=== PATIENT | male | born 1990 | race African-American/Black ===

== ENCOUNTER 2024-07-24 14:41 | Inpatient (IN) | payer MEDICAID, SELFPAY ==
[2024-07-24] VITALS (16 sets, daily range): BP systolic 103–146; BP diastolic 61–101; PULSE 56–88; RESP 14–20; TEMP 36.3–36.7; O2SAT 94–100; BMI 23.1
--- NOTE | 2024-07-24 15:04 | EDNOTE_ITS ---
ED Syncope RME/HPI General Chief Complaint: Syncope / Near Syncope Stated Complaint: SYNCOPAL EPISODE Time Seen by Provider: 07/24/24 15:02 Arrival date/time: 07/24/24 14:41 RME / HPI RME / HPI narrative: This section includes all my notes and documentations, including HPI, PE, and ED course.? Ghanshyam Zuniga MD HPI: 33 year old male presents to the ED BIBA from home for evaluation of possible seizure today. Per medics, reported patient was sitting in chair playing video games and noted to slump over backwards and had seizure-like activity lasting 1 minute. is uncertain when the seizure started. Per medics, on scene patient is noted to be heavily intoxicated. states patient drinks alcohol daily and patients admits to drinking heavily yesterday. No falls or injuries reported. Denies any history of seizures. No other complaints. ROS: All negative except as documented in HPI. Physical Exam: General:? Alert and oriented.? No acute distress when remaining still.?? Eyes:? Conjunctivae and lids clear.? PERRL. EOMI. ENT:? No signs of trauma. Neck:? Supple.? Heart:? RRR.? Lungs:? No respiratory distress.? Good air movement.? No rhonchi, wheezing, rales.?? Abdomen:? Soft and nontender.?? Legs:? No clubbing, cyanosis, edema.? Skin:? Warm and dry.?? Neuro:? Alert and oriented X 3.??Cranial nerves II through XII grossly normal. No peripheral motor deficits. I reviewed all diagnostic test results. My interpretation of the EKG is?Sinus rhythm (62 bpm) with nonspecific ST-T changes. My review of the chest/abdomen/pelvis CT report is?No hemopericardium, pneumothorax, pulmonary contusion or hemothorax. My review of the head CT report is Negative for acute hemorrhage, mass effect or midline shift. Blood tests and urine tests?remarkable for alcohol 199.2 and UDS positive for cocaine and marijuana. At this point, diagnoses include?alcohol withdrawal seizures. Treatment here included?IV fluid and Ativan and thiamine. Patient remained stable. I discussed the case with our neurologist and hospitalist.? About the presentation and exam and diagnostics and treatments here.? And need of further care in the hospital.? Will accept the patient. Ghanshyam Zuniga MD Related Data Allergies Allergy/AdvReac Type Severity Reaction Status Date / Time No Known Allergies Allergy Verified 07/24/24 15:00 Review of Systems Review of Systems Systems Reviewed: All systems reviewed, normal except as documented Past Medical History Past Medical History CARDIAC: Positive Cardiac Arrhythmia (SVT); Negative Congestive Heart Failure RESPIRATORY: Positive Asthma; Negative Chronic Obstructive Pulmonary Disease (COPD) GENITOURINARY: Negative Renal Disease ENDOCRINE: Negative Diabetes Mellitus Type 1 or Diabetes Mellitus Type 2 Social History SMOKING STATUS: Current every day smoker ED Exam Narrative Physical exam: As noted in HPI Course Quality Measures none Orders Category Date Time Status COVID-19 Screening Questionnaire NOW Care 07/24/24 17:37 Active Decision to Admit X1 Care 07/24/24 17:37 Completed EKG (ED ONLY) *Do not use* NOW Care 07/24/24 15:09 Completed Saline [Insert IV] NOW Care 07/24/24 15:08 Active Consult to Neurology / Tele-Neurology Stat Cons 07/24/24 17:[address] chest abdomen pelvis wo Stat Exams 07/24/24 15:[address] head/brain wo con Stat Exams 07/24/24 15:09 Completed EKG (ED Only) Stat Exams 07/24/24 15:09 Ordered Alcohol, Blood Medical Stat Lab 07/24/24 15:28 Completed Amylase Stat Lab 07/24/24 15:28 Completed BMP [Basic Metabolic Panel] Stat Lab 07/24/24 15:28 Completed CBC Stat Lab 07/24/24 15:28 Completed Drug Screen,Urine Stat Lab 07/24/24 14:29 Completed Lipase Stat Lab 07/24/24 15:28 Completed Liver Panel Stat Lab 07/24/24 15:28 Completed Magnesium Stat Lab 07/24/24 15:28 Completed Troponin I Stat Lab 07/24/24 15:28 Completed LORazepam [Ativan Inj] Med 07/24/24 15:08 Discontinued 2 mg IVP X1 ONE Ondansetron Inj [Zofran Inj] Med 07/24/24 15:08 Discontinued 4 mg IV X1 ONE Thiamine Inj [Vitamin B-1 Inj] 100 mg Med 07/24/24 15:08 Discontinued Sodium Chloride 0.9% [Ns] 100 ml IV X1 Vital Signs Vital signs: Vital Signs Temperature 98.1 F 07/24/24 14:55 Pulse Rate 82 07/24/24 14:55 Respiratory Rate 17 07/24/24 14:55 Blood Pressure 128/79 07/24/24 14:55 Pulse Oximetry (%) 99 07/24/24 14:55 Oxygen Delivery Method Room Air 07/24/24 14:55 Pulse ox is 99% on room air which is adequate. Syncope MDM Narrative MDM Narrative:: Lillie Ann am scribing for and in the presence of Dr. uZniga. Patient data External records reviewed:: [facility] previous records (I reviewed ED visit on 05/30/2022) and EMS form Clinical information provided by:: patient and EMS Social determinants that could affect healthcare access:: alcohol use Patient has the following chronic illnesses:: Alcohol abuse How is presenting disease/condition affected by chronic disease/condition?: exacerbated by Evaluation data The following diagnostics were reviewed and interpreted by me:: lab results, radiology exam(s) and EKG tracing(s) (My interpretation of the EKG is: Sinus rhythm (62 bpm) with nonspecific ST-T changes. Ghanshyam Zuniga MD) Lab and/or radiology exams considered but not ordered:: None Interpretation Summary: Diagnostics normal except elevated alcohol and UDS positive for cocaine and marijuana Medications / Prescriptions Medications or Prescriptions considered but not ordered:: None Medication administrations:: Medication Administration History Acetaminophen (Acetaminophen 325 Mg Tablet) 650 mg PO Q6H PRN PRN Reason: Fever >100.5 Stop: 08/23/24 18:03 Acetaminophen (Acetaminophen 325 Mg Tablet) 650 mg PO Q6H PRN PRN Reason: PAIN SCALE 1-3 (mild Stop: 08/23/24 18:03 Docusate Sodium (Docusate Sod 100 Mg Capsule) 100 mg PO QDAY [facility]; Protocol Stop: 08/24/24 08:59 Folic Acid (Folic Acid 1 Mg Tablet) 1 mg PO BID [facility] Stop: 07/29/24 20:59 Last Admin: 07/24/24 23:28 Dose: 1 mg Documented By: SCOT Heparin Sodium (Porcine) (Heparin Sod Inj 5000 Unit/Ml Vial) 5,000 unit SC Q8HR [facility] Stop: 08/07/24 21:59 Last Admin: 07/25/24 05:20 Dose: 5,000 unit Documented By: MYRNA Co-signed By: Admin: 07/24/24 23:28 Dose: 5,000 unit Documented By: SCOT Co-signed By: Lorazepam (Lorazepam 0.5 Mg Tablet) 0.5 mg PO Q4HR PRN PRN Reason: CIWA Score 2-6 Stop: 07/29/24 18:03 Lorazepam (Lorazepam 2 Mg/Ml Vial) 1 mg IV Q2HR PRN PRN Reason: CIWA SCORE 14-19 Stop: 07/29/24 18:03 Lorazepam (Lorazepam 0.5 Mg Tablet) 1 mg PO Q4HR PRN PRN Reason: CIWA SCORE 7-11 Stop: 07/29/24 18:03 Lorazepam (Lorazepam 0.5 Mg Tablet) 2 mg PO Q4HR PRN PRN Reason: CIWA SCORE 12-15 Stop: 07/29/24 18:03 Lorazepam (Lorazepam 2 Mg/Ml Vial) 0.5 mg IV Q2HR PRN PRN Reason: CIWA SCORE 8-13 Stop: 07/29/24 18:03 Lorazepam (Lorazepam 2 Mg/Ml Vial) 2 mg IV Q2HR PRN PRN Reason: CIWA SCORE 20-25 Stop: 07/29/24 18:03 Lorazepam (Lorazepam 2 Mg/Ml Vial) 2 mg IVP X1 PRN PRN Reason: breakthrough seizures Stop: 07/29/24 18:28 Ondansetron HCl (Ondansetron Inj 2 Mg/Ml Inj 2 Ml) 4 mg IV Q6H PRN; Protocol PRN Reason: NAUSEA OR VOMITING Stop: 08/23/24 18:03 Thiamine HCl (Thiamine 100 Mg Tablet) 100 mg PO BID [facility] Stop: 07/29/24 20:59 Last Admin: 07/24/24 23:28 Dose: 100 mg Documented By: SCOT Discontinued Medications Thiamine HCl 100 mg/ Sodium (Chloride) 101 mls @ 202 mls/hr IV X1 ONE Stop: 07/24/24 15:37 Last Infusion: 07/24/24 17:30 Dose: Infused Documented By: Admin: 07/24/24 16:40 Dose: 202 mls/hr Documented By: LILLY Lorazepam (Lorazepam 2 Mg/Ml Vial) 2 mg IVP X1 ONE Stop: 07/24/24 15:09 Last Admin: 07/24/24 16:39 Dose: 2 mg Documented By: LILLY Ondansetron HCl (Ondansetron Inj 2 Mg/Ml Inj 2 Ml) 4 mg IV X1 ONE; Protocol Stop: 07/24/24 15:09 Last Admin: 07/24/24 16:39 Dose: 4 mg Documented By: LILLY Patient given Ativan, Zofran, thiamine Consultations Consultation(s) initiated? (list below): Yes Consultation #1 (Physician, Specialty, Details): I spoke with neurologist Dr. oCnner, she agree to consult. Consultation #2 (Physician, Specialty, Details): I spoke with our hospitalist regarding admission. Diagnosis Syncope Differential Diagnosis: syncope due to orthostatic hypotension, vasovagal syncope, complete atrioventricular block, subarachnoid hemorrhage, pulmonary embolism, dehydration and other (Seizure) Most likely diagnosis given after review of the tests above:: Alcohol withdrawal seizures Admission Indicated Admission indicated?: indicated Admission Request Was there a request for admission?: Yes Admission Attestation Admission request attestation: Discussed case with Hospitalist service regarding admission. Discussed patients ED course, exam findings, labs, and radiology results. The Hospitalist [agrees,declines] to accept the patient for admission. Disposition Plan Disposition Plan: Admit Discharge Plan Plan Patient Disposition: Admit Acute Care w/in Hospital Problem List Clinical Impression: Seizure, Alcohol use disorder
--- NOTE | 2024-07-24 15:09 | XR_ITS ---
Examination: CT brain head without contrast. 2-D sagittal coronal reconstructions Date and time of exam:July 24, 2024 1617 hours INDICATIONS: Seizures today CTDI: vol (mGy):53.1 DLP: (mGycm):1128 Technique: Multiple CT axial sections of the brain have been obtained, 5 mm slice thickness. Contrast has not been administered. 2-D sagittal, coronal reconstructions have been obtained Low dose protocols were performed. One or more of the following dose reduction techniques were used; automated exposure control, adjustment of the mA and/or KV according to patient size, use of iterative reconstruction technique. Findings: No significant ventricular enlargement. Intra-axial or extra-axial hemorrhage density is not seen. No mass effect or midline shift Basal cisterns are not remarkable. Fourth ventricle is midline. Cranial vault intact. Impression: Negative for acute hemorrhage, mass effect or midline shift Consider elective brain MRI follow-up, pre and postcontrast, seizure protocol
--- NOTE | 2024-07-24 15:09 | XR_ITS ---
Examination: CT chest, without intravenous contrast. CT abdomen, without intravenous contrast. CT pelvis, without intravenous contrast. 2-D sagittal and coronal reconstructions. 3-D reconstructions. Date and time of exam:July 24, 2024 1619 hours INDICATIONS: Patient fell today with injury to the chest and abdomen, chest pain abdomen pain CTDI vol (mgy) 6.90 DLP (MGycm)536 Technique: Multiple CT images, 3.0 mm slice thickness, obtained chest, abdomen, pelvis, with the high-resolution 64 slice scanner.. Sagittal and coronal 2-D reconstructions are obtained. 3-D reconstructions Low dose protocols were performed. One or more of the following dose reduction techniques were used; automated exposure control, adjustment of the mA and/or KV according to patient size, use of iterative reconstruction technique. Findings: Thoracic aorta pulmonary arteries intact on this noncontrast study No hemopericardium No pneumothorax pulmonary contusion or hemothorax The manubrium, the body the sternum, thoracic vertebral bodies appear intact Ribs appear intact No liver splenic or renal laceration, no perinephric hematoma No gallstones Normal pancreas Abdominal aorta intact, no free blood in the abdomen Negative for pneumoperitoneum Urinary bladder intact No prostatomegaly Lumbar vertebral bodies appear intact Sacral segments and iliac bones including anterior rami and hips appear intact IMPRESSION: Thoracic aorta pulmonary arteries intact No hemopericardium, pneumothorax, pulmonary contusion or hemothorax No abdominal parenchymal laceration Abdominal aorta intact No free blood in the abdomen Osseous structures appear intact
[2024-07-24 16:04] LABS: Basophils % (Auto) 0 % (0-2.5); Eosinophils # (Auto) 0.3 Thou/mm3 (0.0-0.5); Eosinophils % (Auto) 5 % (0-10); Hemoglobin 13.1 g/dL (13.5-16.0); Immature Granulocytes % (Auto) 0 % (0-0); Lymphocytes # (Auto) 2.3 Thou/mm3 (1.0-4.8); Lymphocytes % (Auto) 39 % (10-50); Mean Corpuscular HGB Conc 33.6 g/dl (31.0-37.0); Mean Corpuscular Hemoglobin 27.9 pg (25.0-35.0); Mean Corpuscular Volume 83 fL (80-100); Monocytes # (Auto) 0.5 Thou/mm3 (0.0-0.8); Monocytes % (Auto) 9 % (0-12); Neutrophils # (Auto) 2.7 Thou/mm3 (1.8-7.7); Neutrophils % (Auto) 47 % (37-80); Nucleated Red Blood Cell % 0 /100 WBC (0); Platelet Count 275 Thou/mm3 (140-440); RDW Standard Deviation 44.2 fL (35.1-43.9); White Blood Count 5.8 Thou/mm3 (3.8-10.6)
[2024-07-24] MEDS: LORazepam 2 MG/ML VIAL IVP (16:39)
[2024-07-24] MEDS: ONDANSETRON INJ 2 MG/ML INJ 2 ML 4 MG IV (16:39)
[2024-07-24] MEDS: THIAMINE INJ 100 MG in SODIUM CHLORIDE 0.9% 100 ML 202 MG IV (16:40)
[2024-07-24 17:17] LABS: Alanine Aminotransferase 14 U/L (10-49); Albumin, Serum 4.7 gm/dL (3.5-5.0); Alcohol, Blood Medical 199.2 mg/dL (0-10.0); Alkaline Phosphatase 87 U/L (46-116); Amylase 154 U/L (30-118); Aspartate Amino Transferase 22 U/L (0-34); BUN/Creatinine Ratio 15 Ratio (12-20); Bilirubin,Direct 0.1 mg/dL (0.0-0.3); Bilirubin,Total 0.4 mg/dL (0.3-1.2); Blood Urea Nitrogen 15 mg/dL (9-23); Calcium 9.5 mg/dL (8.3-10.6); Carbon Dioxide 25.3 mMol/L (20.0-31.0); Estimated Creatinine Clearance 120.2 mL/min (>60); Glucose 82 mg/dL (74-106); Lipase 121 U/L (12-53); Magnesium 2.1 mg/dL (1.6-2.6); Total Protein 8.2 gm/dL (5.7-8.2); Troponin I < 0.002 ng/mL (0.0-0.045); eGFR > 60 See Note
[2024-07-24 17:21] LABS: Anion Gap 11 (7-16); Chloride 109 mMol/L (98-107); Osmolality,Calculated 288 (275-295); Potassium 3.7 mMol/L (3.4-5.1); Sodium 145 mMol/L (136-145)
[2024-07-24 17:57] LABS: Amphetamine/Methamp Scrn,U Negative (Negative); Barbiturate Screen,Urine Negative (Negative); Benzodiazepines Screen,Urine Negative (Negative); Benzoylecgonine Screen, Ur Positive (Negative); Fentanyl Screen,Urine Negative (Negative); Opiate Screen,Urine Negative (Negative); THC Screen,Urine Positive (Negative)
--- NOTE | 2024-07-24 18:08 | ESHP_ITS ---
Documentation for date of: 07/24/24 HPI History of Present Illness Chief complaint: new onset seizure History of present illness: 33-year-old male with no past medical history presented to the ED due to new onset seizures. Patient's girlfriend states the patient sitting in a chair with his eyes rolled back and all tensed up and put the patient on the floor on his side. Patient and girlfriend state yesterday they were heavily drinking and doing cocaine and smoking marijuana. Stated that they drink every other day at least drinks 2 shots over a few beers. Patient also has remote history of SVTs were supposed to follow-up with chemical engineering technologist but never did. Denies tongue biting, urinary incontinence, fevers, chills, shortness of breath, chest pain, nausea vomiting, abdominal pain. Admitted for new onset seizures. ED course: In the ED vital signs stable. Labs significant for amylase 154, lipase 121, U tox positive for cocaine, marijuana, alcohol. EKG shows sinus rhythm. Chest abdomen pelvis CT showed Thoracic aorta pulmonary arteries intact, No hemopericardium, pneumothorax, pulmonary contusion or hemothorax, No abdominal parenchymal laceration, Abdominal aorta intact, No free blood in the abdomen, Osseous structures appear intact. Head CT showed Negative for acute hemorrhage, mass effect or midline shift PMHx: None SX Hx: None Social Hx: Cocaine, marijuana, 2 shots or a few beers every other day FHX: Unknown Review of Systems Review of Systems Narrative Review of Systems: Narrative ROS GENERAL: Denies fevers/chills or diaphoresis. HEENT: Denies headache or visual/hearing changes. Denies nasal discharge. NEURO: Denies unusual weakness or difficulty speaking. CARDIO: Denies chest pain or palpitations. PULM: Denies SOB, coughing, or wheezing. GI: Denies abdominal pain, N/V/C/D/reflux/gas, bright red blood per rectum or melena. Reports having BMs. URO: Denies burning/itching/pain/urinary changes. MSK/EXT/SKIN: Denies joint/skeletal/muscle pain, issues/changes in upper or lower extremities, itchiness, or superficial pain. PSYCH: Cooperative, pleasant mood & affect. The rest of the review of systems is otherwise negative. Exam Vital Signs Temp Pulse Resp BP Pulse Ox O2 Del Method 98.1 F 62 19 110/79 97 Room Air 01/30/25 14:55 07/24/24 16:31 07/24/24 16:31 07/24/24 16:31 07/24/24 16:31 07/24/24 16:31 Narrative Exam Physical Exam GENERAL: NAD, AAOx3 HEENT: Moist mucosa. Eyes open, symmetrical, & clear CARDIO: Heart RRR, no obvious murmurs PULM: No noted coughing/dyspnea CTA B/L, no R/W/R GI: Abdomen soft, nondistended, no pain on palpation. BSx4 SKIN/MSK/EXT: No wounds/rashes/edema/amputations, no pain on palpation. Pedal pulses present B/L NEURO: AAOx3, no focal neuro deficits, able to move all 4 extremities Results: Labs 07/25/24 04:43 07/25/24 04:43 Labs: Short CBC 07/24/24 Range/Units 15:28 WBC 5.8 (3.8-10.6) Thou/mm3 Hgb 13.1 L (13.5-16.0) g/dL Hct 39.0 L (41.0-53.0) % Plt Count 275 (140-440) Thou/mm3 BMP 07/24/24 15:28 Sodium 145 Potassium 3.7 Chloride 109 H Carbon Dioxide 25.3 BUN 15 Creatinine 1.0 Glucose 82 Calcium 9.5 Cardiac Enzymes 07/24/24 Range/Units 15:28 Troponin I < 0.002 (0.0-0.045) ng/mL Liver Function 07/24/24 Range/Units 15:28 Total Bilirubin 0.4 (0.3-1.2) mg/dL Direct Bilirubin 0.1 (0.0-0.3) mg/dL AST 22 (0-34) U/L ALT 14 (10-49) U/L Alkaline Phosphatase 87 (46-116) U/L Albumin 4.7 (3.5-5.0) gm/dL Quality Measures Quality Measures none Medications Home Medications and Allergies Allergies Allergy/AdvReac Type Severity Reaction Status Date / Time No Known Allergies Allergy Verified 07/24/24 15:00 Visit Medications Acetaminophen (Acetaminophen 325 Mg Tablet) 650 mg PO Q6H PRN PRN Reason: Fever >100.5 Stop: 08/23/24 18:03 Acetaminophen (Acetaminophen 325 Mg Tablet) 650 mg PO Q6H PRN PRN Reason: PAIN SCALE 1-3 (mild Stop: 08/23/24 18:03 Docusate Sodium (Docusate Sod 100 Mg Capsule) 100 mg PO QDAY [facility]; Protocol Stop: 08/24/24 08:59 Folic Acid (Folic Acid 1 Mg Tablet) 1 mg PO BID [facility] Stop: 07/29/24 20:59 Heparin Sodium (Porcine) (Heparin Sod Inj 5000 Unit/Ml Vial) 5,000 unit SC Q8HR [facility] Stop: 08/07/24 21:59 Lorazepam (Lorazepam 0.5 Mg Tablet) 0.5 mg PO Q4HR PRN PRN Reason: CIWA Score 2-6 Stop: 07/29/24 18:03 Lorazepam (Lorazepam 2 Mg/Ml Vial) 1 mg IV Q2HR PRN PRN Reason: CIWA SCORE 14-19 Stop: 07/29/24 18:03 Lorazepam (Lorazepam 0.5 Mg Tablet) 1 mg PO Q4HR PRN PRN Reason: CIWA SCORE 7-11 Stop: 07/29/24 18:03 Lorazepam (Lorazepam 0.5 Mg Tablet) 2 mg PO Q4HR PRN PRN Reason: CIWA SCORE 12-15 Stop: 07/29/24 18:03 Lorazepam (Lorazepam 2 Mg/Ml Vial) 0.5 mg IV Q2HR PRN PRN Reason: CIWA SCORE 8-13 Stop: 07/29/24 18:03 Lorazepam (Lorazepam 2 Mg/Ml Vial) 2 mg IV Q2HR PRN PRN Reason: CIWA SCORE 20-25 Stop: 07/29/24 18:03 Ondansetron HCl (Ondansetron Inj 2 Mg/Ml Inj 2 Ml) 4 mg IV Q6H PRN; Protocol PRN Reason: NAUSEA OR VOMITING Stop: 08/23/24 18:03 Thiamine HCl (Thiamine 100 Mg Tablet) 100 mg PO BID [facility] Stop: 07/29/24 20:59 Discontinued Medications Thiamine HCl 100 mg/ Sodium (Chloride) 101 mls @ 202 mls/hr IV X1 ONE Stop: 07/24/24 15:37 Last Infusion: 07/24/24 17:30 Dose: Infused Lorazepam (Lorazepam 2 Mg/Ml Vial) 2 mg IVP X1 ONE Stop: 07/24/24 15:09 Last Admin: 07/24/24 16:39 Dose: 2 mg Ondansetron HCl (Ondansetron Inj 2 Mg/Ml Inj 2 Ml) 4 mg IV X1 ONE; Protocol Stop: 07/24/24 15:09 Last Admin: 07/24/24 16:39 Dose: 4 mg Assessment & Plan Plan 33-year-old male with no past medical history presented to the ED due to new onset seizures. Patient's girlfriend states the patient sitting in a chair with his eyes rolled back and all tensed up and put the patient on the floor on his side. Patient and girlfriend state yesterday they were heavily drinking and doing cocaine and smoking marijuana. Stated that they drink every other day at least drinks 2 shots over a few beers. Patient also has remote history of SVTs were supposed to follow-up with chemical engineering technologist but never did. Denies tongue biting, urinary incontinence, fevers, chills, shortness of breath, chest pain, nausea vomiting, abdominal pain. Admitted for new onset seizures. #New onset seizures Likely secondary to polysubstance abuse Patient was found with eyes rolled back and tensed up in the chair ?Lorazepam for breakthrough seizures ? EEG ordered ? Neurology consulted, appreciate recommendations #Alcohol use disorder #Cocaine use disorder #THC use disorder Patient is an active drinker drinks almost every day has a few shots and a few beers Patient also does cocaine THC recreational Last night patient and partner were heavily drinking and doing cocaine and marijuana. This morning patient drank 2 shots and was playing videogames and was found with eyes rolled back and tensed up in the chair ? Monitor for withdrawal ? IV thiamine and folate ? CIWA protocol in place ? Consider licensed social worker referral Case discussed with my senior Dr. Zimmerman PGY-[address] Eugene Pickett MD PGY-1 Disposition: Telemetry Fluids: None Feeding: Regular Thrombo prophylaxis: None Gastric Ulcer prophylaxis: None CODE STATUS: Full code Senior resident attestation: Patient evaluated and examined at the bedside, plan of care discussed with rest of the team including my attending physician, except as noted. Elsie PGY2 Attending Provider Attestation/Addendum Melanie Ann DO, attest that I was physically present for the beckett portions of the service and evaluated the patient with the resident and I reviewed and discussed the case with the resident and agree with the resident's findings and plans of care as documented above Patient is a 33 year old male with Pmhx of chonic alcohol use who was brought to ED after he had a witnessed seizure. Patient and his significant other had gone to a green party at night during which he was binge drinking, smoking marijuana and using cocaine. Patient woke up this morning and has been somnolent. Per S.O., patient was seen to be rigid and nonreponsive for about 60 seconds. She placed him on the floor and states he had no head trauma. Patient denies previous history of seizures. CT head was done in the ED and showed no acute intracranial findings. CT chest/abdomen/pelvis was also unremarkable despite elevated lipase and amylase, which is more likely due to N/V as patient has been hungover throughout the day. Neurology was called for new onset seizure. Patient is otherwise neurologically intact. Will admit to tele for further workup and medical management on new onset seizure. Will hold off on antiepileptics at this time. Will order EEG. Will monitor for withdrawal under CIWA protocol. Counselled patient on cessation of polysubstance use.
--- NOTE | 2024-07-24 21:27 | PC.NURSE ---
Pt is resting quietly. Sleepy but arouses easily. Family at bedside.
[2024-07-24] MEDS: FOLIC ACID 1 MG TABLET PO (23:28)
[2024-07-24] MEDS: THIAMINE 100 MG TABLET PO (23:28)
[2024-07-24] MEDS: HEPARIN SOD INJ 5000 UNIT/ML VIAL SC (23:28)
--- NOTE | 2024-07-24 23:45 | PD.VCONSULT1 ---
Telemedicine visit statement This visit was conducted with the use of interactive audio and video telecommunications system that permits real time communication between the patient and the provider. Patient's verbal consent for virtual visit was obtained on 07/24/24 at 2345. Meds Home Medications and Allergies Allergies Allergy/AdvReac Type Severity Reaction Status Date / Time No Known Allergies Allergy Verified 07/24/24 15:00 Virtual exam Vital Signs Temp Pulse Resp BP Pulse Ox O2 Del Method 97.7 F 76 20 108/66 95 Room Air 07/24/24 18:47 07/24/24 21:00 07/24/24 21:00 07/24/24 21:00 07/24/24 21:00 07/24/24 18:47 Results Labs 07/24/24 15:28 07/24/24 15:28 Labs: Short CBC 07/24/24 Range/Units 15:28 WBC 5.8 (3.8-10.6) Thou/mm3 Hgb 13.1 L (13.5-16.0) g/dL Hct 39.0 L (41.0-53.0) % Plt Count 275 (140-440) Thou/mm3 BMP 07/24/24 15:28 Sodium 145 Potassium 3.7 Chloride 109 H Carbon Dioxide 25.3 BUN 15 Creatinine 1.0 Glucose 82 Calcium 9.5 Cardiac Enzymes 07/24/24 Range/Units 15:28 Troponin I < 0.002 (0.0-0.045) ng/mL Liver Function 07/24/24 Range/Units 15:28 Total Bilirubin 0.4 (0.3-1.2) mg/dL Direct Bilirubin 0.1 (0.0-0.3) mg/dL AST 22 (0-34) U/L ALT 14 (10-49) U/L Alkaline Phosphatase 87 (46-116) U/L Albumin 4.7 (3.5-5.0) gm/dL
--- NOTE | 2024-07-24 23:53 | PC.NURSE ---
Report was called and pt taken to [facility].PA&O NAD.
[2024-07-25 04:00] VITALS: BP 117/77; PULSE 62; RESP 16; TEMP 36.4; O2SAT 99
[2024-07-25] MEDS: HEPARIN SOD INJ 5000 UNIT/ML VIAL SC ×2 (05:20→13:29)
[2024-07-25 05:29] LABS: Basophils % (Auto) 0 % (0-2.5); Eosinophils # (Auto) 0.7 Thou/mm3 (0.0-0.5); Eosinophils % (Auto) 10 % (0-10); Hematocrit 37.4 % (41.0-53.0); Hemoglobin 12.7 g/dL (13.5-16.0); Immature Granulocytes % (Auto) 0 % (0-0); Immature Granulocytes Auto 0.01 Thou/mm3 (0.00-0.00); Lymphocytes # (Auto) 2.7 Thou/mm3 (1.0-4.8); Lymphocytes % (Auto) 38 % (10-50); Mean Corpuscular Volume 83 fL (80-100); Monocytes # (Auto) 0.7 Thou/mm3 (0.0-0.8); Monocytes % (Auto) 10 % (0-12); Neutrophils # (Auto) 2.9 Thou/mm3 (1.8-7.7); Neutrophils % (Auto) 42 % (37-80); Nucleated Red Blood Cell % 0 /100 WBC (0); Platelet Count 265 Thou/mm3 (140-440); Red Blood Count 4.53 Miln/mm3 (4.50-5.90)
[2024-07-25 05:55] VITALS: BMI 22.6
[2024-07-25 05:56] LABS: Alanine Aminotransferase 13 U/L (10-49); Albumin, Serum 4.4 gm/dL (3.5-5.0); Albumin/Globulin Ratio 1.4 (1.2-2.2); Alkaline Phosphatase 85 U/L (46-116); Anion Gap 7 (7-16); Aspartate Amino Transferase 20 U/L (0-34); BUN/Creatinine Ratio 19 Ratio (12-20); Bilirubin,Total 0.6 mg/dL (0.3-1.2); Blood Urea Nitrogen 19 mg/dL (9-23); Carbon Dioxide 27.9 mMol/L (20.0-31.0); Chloride 105 mMol/L (98-107); Estimated Creatinine Clearance 120.2 mL/min (>60); Globulin 3.2 gm/dL (2.3-3.5); Glucose 98 mg/dL (74-106); Magnesium 1.8 mg/dL (1.6-2.6); Osmolality,Calculated 281 (275-295); Phosphorous 4.2 mg/dL (2.4-5.1); Potassium 3.7 mMol/L (3.4-5.1); Sodium 140 mMol/L (136-145); Total Protein 7.6 gm/dL (5.7-8.2); eGFR > 60 See Note
[2024-07-25 08:00] VITALS: BP 127/73; PULSE 54; PULSE 58; RESP 18; TEMP 36.7; O2SAT 98
[2024-07-25] MEDS: FOLIC ACID 1 MG TABLET PO (09:57)
[2024-07-25] MEDS: THIAMINE 100 MG TABLET PO (09:57)
[2024-07-25] MEDS: DOCUSATE SOD 100 MG CAPSULE PO (09:57)
[2024-07-25 11:37] VITALS: BP 121/80; PULSE 56; RESP 18; TEMP 36.3; O2SAT 99
[2024-07-25 12:00] VITALS: PULSE 55
--- NOTE | 2024-07-25 12:05 | PC.SS ---
Follow up note: Pt is on CWAL protocol. EEG pending.
--- NOTE | 2024-07-25 12:14 | RESP.EEG ---
EEG COMPLETED AND READY TO READ. I SENT A TEXT TO DR. Bedoya
--- NOTE | 2024-07-25 14:31 | ESDS_ITS ---
<Statement entered by Melanie Knight DO - 07/25/24 16:34> I, Melanie Knight DO, attest that I was physically present for the beckett portions of the service and evaluated the patient with the resident and I reviewed and discussed the case with the resident and agree with the resident's findings and plans of care as documented above Planned Discharge Date 07/25/24 DS: Providers Provider Date of admission: 07/24/24 18:04 Primary care physician: Physician No Primary/Family Admitting Provider: Melanie Knight DO Attending Provider on Admission: Melanie Knight DO Consults: 07/24/24 17:34 Consult to Neurology / Tele-Neurology Stat Comment: Seizure Consulting Provider: Alfredo Conner Attending Provider on DC: Jourdan Pickett MD Discharging Provider: Jourdan Pickett MD DS: Diagnosis Problem List Completed Was Problem List Reviewed/Reconciled?: Yes Hospital Course Hospital Course Hospital course: 33-year-old male with no past medical history presented to the ED due to new onset seizures. Patient's girlfriend states the patient sitting in a chair with his eyes rolled back and all tensed up and put the patient on the floor on his side. Patient and girlfriend state yesterday they were heavily drinking and doing cocaine and smoking marijuana. Stated that they drink every other day at least drinks 2 shots over a few beers. Patient also has remote history of SVTs were supposed to follow-up with systems lead but never did. Patient was admitted for new onset seizures. During hospital stay patient was evaluated with EEG which was negative read by neurology. Neurology Dr Conner was consulted and provided recommendations. Patient's neurostatus monitored for any new onset seizures. For patient's alcohol use disorder, cocaine use disorder, THC use disorder patient was monitored with [facility] protocol, IV thiamine and folate was provided. Was monitored for withdrawal symptoms. Patient was extensively counseled on the cessation of these multiple substances, risks of the continued use of these substances more informed to the patient. At this time patient is medically stable for discharge. Recommended to follow-up with primary care physician within 1 week of discharge. Patient counseled extensively on the cessation of illicit substances including cocaine and THC. Patient counseled extensively on cessation of daily alcohol use. Must not operate motor vehicles for at least 3 months or until neurology clearance. Follow-up with neurology within 2 weeks of discharge. Should symptoms recur or worsen patient is instructed to return to the ED. Problem list: #New onset seizures #Alcohol use disorder #Cocaine use disorder #THC use disorder Case discussed with my attending Dr. Eugene Pickett MD PGY-1 Status at Discharge Functional status at discharge: independent ambulation Overall status at discharge: patient is back to baseline Time Spent with Patient Time attestation: Total time spent providing and/or coordinating discharge services: Time spent: Greater than 30 minutes Exam Vital Signs Temp Pulse Resp BP Pulse Ox O2 Del Method 97.4 F 55 L 18 121/80 99 Room Air 07/25/24 11:37 07/25/24 12:00 07/25/24 11:37 07/25/24 11:37 07/25/24 11:37 07/25/24 11:37 Narrative Exam Physical Exam GENERAL: NAD, AAOx3 HEENT: Moist mucosa. Eyes open, symmetrical, & clear CARDIO: Heart RRR, no obvious murmurs PULM: No noted coughing/dyspnea CTA B/L, no R/W/R GI: Abdomen soft, nondistended, no pain on palpation. BSx4 SKIN/MSK/EXT: No wounds/rashes/edema/amputations, no pain on palpation. Pedal pulses present B/L NEURO: AAOx3, no focal neuro deficits, able to move all 4 extremities Discharge Plan Plan Patient Disposition: HOME (Self Care) Care Plan Goals: Recommended to follow-up with primary care physician within 1 week of discharge. Patient counseled extensively on the cessation of illicit substances including cocaine and THC Patient counseled extensively on cessation of daily alcohol use Must not operate motor vehicles for at least 3 months or until neurology clearance. Follow-up with neurology within 2 weeks of discharge Should symptoms recur or worsen patient is instructed to return to the ED. Prescriptions/Referrals Referrals: No Primary/Family,Physician [Primary Care Provider] - Patient/Caregiver Discharge Instructions Print Language: Telugu Stand Alone Forms: Arina Award Info., Patient Portal Info Letter Discharge Order Discharge Orders: Discharge (Routine); Ordered 07/25/24 Ordered By: Jourdan Pickett Quality Discharge Quality Measures VTE prophylaxis
[2024-07-25 16:00] VITALS: BP 124/80; PULSE 59; RESP 18; TEMP 36.1; O2SAT 98
--- NOTE | 2024-07-25 16:07 | PC.SS ---
SS met with patient regarding his d/c plan.? Pt is alert/oriented.? Pt was admitted for New Onset Seizures.? Pt confirmed demographic and contact information is correct on facesheet.? Pt resides with fimarce and kids.? Pt ambulates independently without assistance or DME.? Pt is ok with all ADLs.? Patient?s pharmacy of choice is [facility] [address] Pt named his Carolyn chavez medical decision maker if he is unable.? Patient?s choice is to return home upon d/c.? Pt states he does not have PCP and is agreeable to [facility].? SS scheduled pt an appointment with Dr. Serna on Aug 01, 2024 at 9:30am.? SS provided pt with [facility].? Pt states he occasionally has drink and wound not engage in further discussion.? SS provided pt with AOD in [facility] information and pt was receptive.?? D/C plan:? Return home Next of Kin:? kathy Lewis, phone# [phone] PCP:? will establish at [facility] Address:? Correct on facesheet
--- NOTE | 2024-07-26 07:10 | PD.VPROG1 ---
Telemedicine visit statement This visit was conducted with the use of virtual visit was obtained Documentation for date of: Virtual exam Vital Signs Temp Pulse Resp BP Pulse Ox O2 Del Method 97.0 F 59 L 18 124/80 98 Room Air 07/25/24 16:00 07/25/24 16:00 07/25/24 16:00 07/25/24 16:00 07/25/24 16:00 07/25/24 16:00 Objective Labs 07/25/24 04:43 07/25/24 04:43 Assessment & Plan Problem List (1) Alcohol use disorder: Status: Acute (2) Seizure: Status: Acute
== END 2024-07-25 16:50 | disposition home or self-care (01) | DRG 53 ==
LOC: SERX 18:27 → S2NX 07-25 06:27 → SERHOLD 07-25 06:28
PROVIDERS: Student in an Organized Health Care Education/Training Program; Admitting Provider Internal Medicine; Emergency Provider Emergency Medicine; Visit Provider Internal Medicine
DX: R56.9 Unspecified convulsions (principal); F12.90 Cannabis use, unspecified, uncomplicated; F10.90 Alcohol use, unspecified, uncomplicated; F14.90 Cocaine use, unspecified, uncomplicated; Y90.6 Blood alcohol level of 120-199 mg/100 ml; F17.200 Nicotine dependence, unspecified, uncomplicated; R40.0 Somnolence
CPT/HCPCS: 36415; 70450; 71250; 74176; 80048; 80053; 80076; 80307; 80320; 82150; 83690; 83735; 84100; 84484; 85025; J1643; J2060; J2405; J3411; J7050; A9270; G0480

== ENCOUNTER 2024-11-13 21:59 | Emergency (ER) | payer MEDICAID, SELFPAY ==
--- NOTE | 2024-11-13 22:00 | EDNOTE_ITS ---
ED Seizures RME/HPI General Stated Complaint: SIZURE Arrival date/time: 11/13/24 21:59 Limitations: no limitations RME / HPI RME / HPI Narrative: Dr. Cramer's Main ED Evaluation: 33yo male with a history of seizures, asthma BIBA from home presents to the ED for a chief complaint of a seizure. Per EMS, they were initially called due to the patient having abnormal breathing and found the patient to have a seizure. EMS endorses the patient is on Keppra, but is noncompliant with his medications. Patient is yelling at staff and is not answering any questions, but is redirectable. Related Data Allergies Allergy/AdvReac Type Severity Reaction Status Date / Time No Known Allergies Allergy Verified 07/24/24 15:00 Review of Systems Review of Systems Systems Reviewed: All systems reviewed, normal except as documented Past Medical History Past Medical History CARDIAC: Positive Cardiac Arrhythmia (SVT); Negative Congestive Heart Failure RESPIRATORY: Positive Asthma; Negative Chronic Obstructive Pulmonary Disease (COPD) GENITOURINARY: Negative Renal Disease ENDOCRINE: Negative Diabetes Mellitus Type 1 or Diabetes Mellitus Type 2 PSYCHO/SOCIAL: Positive Recreational Drug Use Social History SMOKING STATUS: Current every day smoker ED Exam General Limitations: Present no limitations General appearance: Present alert, in no apparent distress and other (is redirectable) Head Head exam: Present atraumatic Eye Eye exam: Present normal appearance, PERRL and EOMI ENT ENT exam: Present normal exam, normal oropharynx and mucous membranes moist Neck Neck exam: Present normal inspection, full ROM and trachea midline Chest Chest inspection: Present normal inspection and symmetric chest wall rise Respiratory Respiratory exam: Present normal lung sounds bilaterally Cardiovascular Cardiovascular exam: Present regular rate, normal rhythm and normal heart sounds Abdominal Exam Abdominal exam: Present soft and normal bowel sounds Extremities Exam Extremities exam: Present normal inspection and full ROM Back Exam Back exam: Present normal inspection and full ROM Neurological Exam Neurological exam: Present alert, oriented X3 and CN II-XII intact Psychiatric Psychiatric exam: Present normal affect and normal mood Skin Skin exam: Present warm, dry, intact and normal color Course Quality Measures none Vital Signs Vital signs: Vital Signs Temperature 98.2 F 11/13/24 22:04 Pulse Rate 124 H 11/13/24 22:04 Respiratory Rate 20 11/13/24 22:04 Blood Pressure 131/90 H 11/13/24 22:04 Pulse Oximetry (%) 97 11/13/24 22:04 Oxygen Delivery Method Room Air 11/13/24 22:04 Seizure MDM Narrative MDM Narrative:: Scribe Attestation: 11/13/24 - Violeta Ann, am scribing for and in the presence of Dr. Cramer. 2304: I was informed that the patient eloped. Patient data External records reviewed:: [facility] previous records (Per chart review, patient was admitted here on 07/24/24 for alcohol use disorder.) Clinical information provided by:: EMS Social determinants that could affect healthcare access:: none Patient has the following chronic illnesses:: seizures, asthma How is presenting disease/condition affected by chronic disease/condition?: caused by Evaluation data The following diagnostics were reviewed and interpreted by me:: other (specify) (none) Lab and/or radiology exams considered but not ordered:: none Interpretation Summary: none Medications / Prescriptions Medications or Prescriptions considered but not ordered:: none Medication administrations:: none Consultations Consultation(s) initiated? (list below): No Diagnosis Seizure Differential Diagnosis: generalized seizure and other (shortness of breath, history of seizure disorder) Most likely diagnosis given after review of the tests above:: see clinical impression below Admission Indicated Admission indicated?: not indicated Admission Request Was there a request for admission?: No Disposition Plan Disposition Plan: other (specify) (Elopement) Discharge Plan Plan Patient Disposition: Elopement Problem List Clinical Impression: At risk for elopement from emergency department, History of seizure disorder Patient/Caregiver Discharge Instructions Print Language: Turkmen
[2024-11-13 22:04] VITALS: BP 131/90; PULSE 124; RESP 20; TEMP 36.8; O2SAT 97
[2024-11-13 22:30] VITALS: BMI 22.1
== END 2024-11-13 23:00 | disposition left against medical advice (07) ==
PROVIDERS: Emergency Provider Emergency Medicine
DX: R56.9 Unspecified convulsions (principal); Z91.148 Patient's other noncompliance with medication regimen for other reason; Z53.29 Procedure and treatment not carried out because of patient's decision for other reasons
CPT/HCPCS: 99281

== ENCOUNTER 2025-03-01 20:36 | Emergency (ER) | payer MEDICAID, SELFPAY ==
[2025-03-01 20:42] VITALS: PULSE 140; O2SAT 99; BMI 24.6
--- NOTE | 2025-03-01 20:48 | PD.EDSEIZ ---
ED Seizures RME/HPI General Chief Complaint: Seizure Stated Complaint: Possible Seizures Time Seen by Provider: 03/01/25 20:52 Arrival date/time: 03/01/25 20:36 RME / HPI RME / HPI Narrative: DR. 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 EMS was called by patient's fiance. PER EMS, patient appeared to be post-itcal upon arrival, then while coming down the elevator, patient became combative and was given Versed 4 mg. Blood sugar on scene was 109 mg/dL, heart rate in the 140's, blood pressure of 160/105, and O2 sat of 99% on 6L. Witnessed: no Seizure History: known seizure disorder Place: home Possible Precipitating Event: other (electrical shock) Associated symptoms: confusion Treatments prior to arrival: restraints Related Data Allergies Allergy/AdvReac Type Severity Reaction Status Date / Time No Known Allergies Allergy Verified 07/24/24 15:00 Review of Systems Review of Systems Systems Reviewed: All systems reviewed, normal except as documented Past Medical History Past Medical History NEUROLOGIC: Positive Seizures CARDIAC: Positive Cardiac Arrhythmia RESPIRATORY: Positive Asthma PSYCHO/SOCIAL: Positive Recreational Drug Use ED Exam Narrative Physical exam: Generally patient is confused and combative, head is normocephalic atraumatic, eyes approximately 6 to 7 mm bilaterally and reactive to light, heart regular rate and rhythm, lungs clear to auscultation equal bilaterally, abdomen is soft nondistended, neurologic exam showed the patient to be moving all extremities but confused, chest shows no wounds, abdomen showed no wounds, extremities show no deformity Course Quality Measures none Orders Category Date Time Status 2 HR Behavioral Restraints Q15M Care 03/01/25 20:59 Active EKG (ED ONLY) *Do not use* NOW Care 03/01/25 20:53 Completed In and Out Catheter X1 Care 03/01/25 21:20 Completed Insert IV NOW Care 03/01/25 21:[address] head/brain wo con Stat Exams 03/01/25 20:53 Completed EKG (ED Only) Stat Exams 03/01/25 20:53 Draft Alcohol, Blood Medical Stat Lab 03/01/25 21:17 Completed CBC Stat Lab 03/01/25 21:17 Completed CMP [Comprehensive Metabolic Panel] Stat Lab 03/01/25 21:17 Completed Drug Screen,Urine Stat Lab 03/01/25 21:17 Completed Diazepam Inj [Valium Inj] Med 03/01/25 21:43 Discontinued 10 mg IVP X1 ONE Ketamine Inj Med 03/01/25 20:52 Discontinued 400 mg IM X1 ONE Vital Signs Vital signs: Vital Signs Temperature 98.2 F 03/01/25 20:57 Pulse Rate 113 H 03/01/25 20:57 Respiratory Rate 18 03/01/25 20:57 Blood Pressure 120/75 03/01/25 20:57 Pulse Oximetry (%) 96 03/01/25 20:57 Oxygen Delivery Method Nasal Cannula 03/01/25 20:57 Oxygen Flow Rate 2 03/01/25 20:57 Seizure MDM Narrative MDM Narrative:: Scribe Attestation: IRosibel am scribing for and in the presence of Dr. Sutton. Provider Notation: Although this document has been carefully reviewed, there may still be some phonetic and other typographical errors. These errors are purely grammatical due to imperfections in the software program and should not be construed in any way to compromise the substance of the patient's medical care during this visit. Differential diagnosis seizure with postictal state, intracerebral injury, drug intoxication, alcohol intoxication, seizure Patient required Valium 10 mg IV for sedation. Urinary tox screen is positive for benzodiazepines and marijuana and this was obtained before the Valium was given. Blood alcohol level is 267. I interpreted all labs. There is no acute abnormality. Head CT is negative. Patient became alert and oriented here in the emergency room. He was counseled on the need to avoid alcohol. It is unsure whether or not will the patient had a seizure. Patient will be discharged when ambulatory and safe. Patient data External records reviewed:: [facility] previous records (Reviewed prior ED records from 11/13/24. Patient was seen for At risk for elopement from emergency department.) and EMS form Clinical information provided by:: EMS and law enforcement Social determinants that could affect healthcare access:: substance use Patient has the following chronic illnesses:: Cardiac Arrhythmia, Seizures, Asthma, Recreational Drug Use How is presenting disease/condition affected by chronic disease/condition?: exacerbated by Evaluation data The following diagnostics were reviewed and interpreted by me:: lab results, radiology exam(s) and EKG tracing(s) Lab and/or radiology exams considered but not ordered:: None Interpretation Summary: RADIOLOGY Head/Brain CT: Findings: No significant ventricular enlargement. Intra-axial or extra-axial hemorrhage density is not seen. No mass effect or midline shift Basal cisterns are not remarkable. Fourth ventricle is midline. Cranial vault intact. Impression: Negative for acute hemorrhage, mass effect or midline shift Consider elective brain MRI follow-up pre and postcontrast, seizure protocol Medications / Prescriptions Medications or Prescriptions considered but not ordered:: None Medication administrations:: Medication Administration History Discontinued Medications Diazepam (Diazepam Inj 5 Mg/Ml Vial 2 Ml) 10 mg IVP X1 ONE Stop: 03/01/25 21:44 Last Admin: 03/01/25 21:47 Dose: 10 mg Documented By: KERVIN Ketamine HCl (Ketamine 50 Mg/Ml Vial 10 Ml) 400 mg IM X1 ONE Stop: 03/01/25 20:53 Last Admin: 03/01/25 21:42 Dose: Not Given Documented By: KERVIN Non-Admin Reason: Change of Condition See above if any Consultations Consultation(s) initiated? (list below): No Diagnosis Seizure Differential Diagnosis: intractable seizure disorder, febrile convulsion, focal seizure, generalized seizure, new onset seizure, epileptic seizure and status epilepticus Most likely diagnosis given after review of the tests above:: None Admission Indicated Admission indicated?: not indicated Explain why admission is indicated or not indicated:: Patient does not meet admission criteria Admission Request Was there a request for admission?: No Disposition Plan Disposition Plan: Discharge Discharge Attestation Discharge Attestation: The patient and all family members were given an opportunity to ask questions and understood the discharge instructions. Discharge instructions specifically effects, indications for sooner follow up or return to the emergency department, and the expected course of current diagnosis. Patient condition: Stable Discharge Plan Plan Patient Disposition: HOME (Self Care) Prescriptions/Referrals Referrals: No Primary/Family,Physician [Primary Care Provider] - In 1 week Problem List Clinical Impression: Alcohol use disorder Patient/Caregiver Discharge Instructions Additional Instructions: Avoid alcohol use in the future. Follow-up with your doctor. Return to ER as needed or if condition worsens. Print Language: Sao Tomean Stand Alone Forms: Arina Award Info., Patient Portal Info Letter
--- NOTE | 2025-03-01 20:53 | XR_ITS ---
Examination: CT brain head without contrast. 2-D sagittal coronal reconstructions Date and time of exam:March 01, 2025, 1033 hrs. Indications: Seizure today followed by altered sinusitis CTDI: vol (mGy):51.6 DLP: (mGycm):1044 Technique: Multiple CT axial sections of the brain have been obtained, 5 mm slice thickness. Contrast has not been administered. 2-D sagittal, coronal reconstructions have been obtained Low dose protocols were performed. One or more of the following dose reduction techniques were used; automated exposure control, adjustment of the mA and/or KV according to patient size, use of iterative reconstruction technique. Findings: No significant ventricular enlargement. Intra-axial or extra-axial hemorrhage density is not seen. No mass effect or midline shift Basal cisterns are not remarkable. Fourth ventricle is midline. Cranial vault intact. Impression: Negative for acute hemorrhage, mass effect or midline shift Consider elective brain MRI follow-up pre and postcontrast, seizure protocol
--- NOTE | 2025-03-01 20:53 | EKG_ITS ---
[facility] Test Date: 2025-03-01 Pat Name: RALPH DENNY Department: Room: - Gender: Male Sat Math Tutor: : 1990 Requested By: Anil Pendleton Order Number: [id number] Reading MD: Anil Pendleton Measurements Intervals Lynn Rate: 99 P: 78 MI: 154 QRS: 86 QRSD: 89 T: 66 QT: 348 QTc: 448 Interpretive Statements SINUS RHYTHM POSSIBLE LEFT ATRIAL ENLARGEMENT [-0.1mV P-WAVE IN V1/V2] POSSIBLE LEFT VENTRICULAR HYPERTROPHY [VOLTAGE CRITERIA PLUS LAE OR QRS WIDENING] NONSPECIFIC ST & T-WAVE ABNORMALITY No previous ECG available for comparison /[id number]/S0/[id number].pdf
[2025-03-01 20:57] VITALS: BP 120/75; PULSE 113; RESP 18; TEMP 36.8; O2SAT 96
[2025-03-01 21:43] LABS: Basophils # (Auto) 0.0 Thou/mm3 (0.0-0.2); Basophils % (Auto) 1 % (0-2.5); Eosinophils # (Auto) 0.3 Thou/mm3 (0.0-0.5); Eosinophils % (Auto) 5 % (0-10); Hematocrit 38.8 % (41.0-53.0); Hemoglobin 12.8 g/dL (13.5-16.0); Immature Granulocytes Auto 0.01 Thou/mm3 (0.00-0.00); Lymphocytes # (Auto) 2.7 Thou/mm3 (1.0-4.8); Lymphocytes % (Auto) 51 % (10-50); Mean Corpuscular HGB Conc 33.0 g/dl (31.0-37.0); Mean Corpuscular Hemoglobin 28.3 pg (25.0-35.0); Mean Corpuscular Volume 86 fL (80-100); Monocytes # (Auto) 0.4 Thou/mm3 (0.0-0.8); Monocytes % (Auto) 7 % (0-12); Neutrophils # (Auto) 1.9 Thou/mm3 (1.8-7.7); Neutrophils % (Auto) 36 % (37-80); Nucleated Red Blood Cell # 0.00 Thou/mm3 (0.00-0.00); Nucleated Red Blood Cell % 0 /100 WBC (0); Platelet Count 288 Thou/mm3 (140-440); RDW Standard Deviation 43.2 fL (35.1-43.9); Red Blood Count 4.53 Miln/mm3 (4.50-5.90); White Blood Count 5.2 Thou/mm3 (3.8-10.6)
[2025-03-01] MEDS: DIAZEPAM INJ 5 MG/ML VIAL 2 ML 10 MG IVP (21:47)
[2025-03-01 21:55] LABS: Amphetamine/Methamp Scrn,U Negative (Negative); Barbiturate Screen,Urine Negative (Negative); Benzodiazepines Screen,Urine Positive (Negative); Benzoylecgonine Screen, Ur Negative (Negative); Fentanyl Screen,Urine Negative (Negative); Opiate Screen,Urine Negative (Negative); THC Screen,Urine Positive (Negative)
[2025-03-01 22:11] LABS: Alanine Aminotransferase 16 U/L (10-49); Albumin, Serum 4.7 gm/dL (3.5-5.0); Albumin/Globulin Ratio 1.7 (1.2-2.2); Alcohol, Blood Medical 267.0 mg/dL (0-10.0); Alkaline Phosphatase 85 U/L (46-116); Anion Gap 13 (7-16); Aspartate Amino Transferase 28 U/L (0-34); BUN/Creatinine Ratio 7 Ratio (12-20); Bilirubin,Total 0.3 mg/dL (0.3-1.2); Blood Urea Nitrogen 8 mg/dL (9-23); Calcium 9.7 mg/dL (8.3-10.6); Calcium (Corrected) 9.7 mg/dL (8.5-10.1); Carbon Dioxide 24.0 mMol/L (20.0-31.0); Chloride 109 mMol/L (98-107); Creatinine (Component) 1.2 mg/dL (0.6-1.3); Estimated Creatinine Clearance 85.9 mL/min (>60); Globulin 2.8 gm/dL (2.3-3.5); Glucose 90 mg/dL (74-106); Osmolality,Calculated 288 (275-295); Potassium 3.6 mMol/L (3.4-5.1); Sodium 146 mMol/L (136-145); Total Protein 7.5 gm/dL (5.7-8.2); eGFR > 60 See Note
--- NOTE | 2025-03-01 22:43 | PC.NURSE ---
PT REMOVED IV APPROX 2215. PRESSURE WAS THEN APPLIED BY RN AND COVERED. CMS ASSESSED AND INTACT. IV CATH INTACT. NO REDNESS OR SWELLING AROUND SITE
[2025-03-01 22:47] VITALS: BP 127/79; PULSE 95; RESP 13; O2SAT 99
--- NOTE | 2025-03-01 22:47 | PC.NURSE ---
Addendum entered by Yamileth Kelly RN 03/01/25 23:00: PTS WAS ASKED TO LEAVE. PROVIDER NOTIFIED. ORDERS FOR VALIUM GIVEN. APPROX 2230 PT WAS CALM AND COORPRIATIVE. RESTRAINTS REMOVED. Original Note: PT WAS BIBA FROM HOME FOR A WITNESS SEIZURE. ON ARRIVAL TO UNIT PT WAS ON 4 POINT RESTRAINTS BY EMS. PT WAS IN [facility] BILATERAL LE RESTRAINTS WERE REMOVED. PT WAS STILL PLACED ON 2 POINT SOFT BILERTAL WRIST RESTIRNATS. AT FIRST PT WAS AGIATED, RUDE, DISRESPECTFUL, VOILENT TO ED STAFF. THIS RN ATTEMPTED TO REDIRECT PT MULTIPLE TIMES WITH NO SUCCESS. IV WAS INSERTED WITH LABS DRAWN AND IN & OUT CATH. DURING IV AND CATH PT REMAINED CALM. PTS THEN ARRIVED TO UNIT AND PT STARTED TO GET MORE AGIATED. PT STARTED TO RAISE VOICE AND CUSS
--- NOTE | 2025-03-01 22:51 | PD.EDADDENDU ---
Emergency Room Addendum Addendum Narrative: EKG done at 9:03 PM shows normal sinus rhythm at a rate of 99 without ischemic change or ectopy with normal intervals.
== END 2025-03-01 23:01 | disposition home or self-care (01) ==
PROVIDERS: Emergency Provider Emergency Medicine
DX: F10.90 Alcohol use, unspecified, uncomplicated (principal)
CPT/HCPCS: 36415; 70450; 80053; 80307; 80320; 85025; 93005; 96374; 99284; J3360; G0480